=== PATIENT | male | born 1950 | race Caucasian/White ===

== ENCOUNTER 2016-10-05 17:23 | Emergency (ER) | payer OTHER ==
[2016-10-05] MEDS ORDERED: Adacel Vial IM ONE ×2 (17:30→18:10)
[2016-10-05] MEDS ORDERED: Sodium Chloride 0.9% 1000 ML 1,000 ML IV SCH (17:30)
[2016-10-05] MEDS ORDERED: SUBLIMAZE 100 MCG/2 ML IV ONE ×2 (17:30→19:26)
[2016-10-05] MEDS ORDERED: SUBLIMAZE 100 MCG/2 ML ONE ×2 (17:42→19:28)
[2016-10-05] MEDS ORDERED: Sodium Chloride 0.9% 1000 ML 1,000 ML ONE (17:42)
[2016-10-05 17:45] LABS: BASOPHIL % 0.2 % (0.0-0.4); Granulocytes % 68.3 % (36.0-66.0); Lymphocytes % 21.6 % (24.0-44.0); Mean Cell Volume 91.5 fl (78-100); Mean Corpuscular Hemoglobin 31.3 pg (26-32); Mean Platelet Volume 9.4 fl (6-9.5); Monocytes % 8.9 % (0.0-12.0); Platelet Count 191 K/mm3 (150-450); Red Cell Distribution Width 13.1 % (11.5-14.0); White Blood Count 10.6 K/mm3 (4.0-10.5)
[2016-10-05 17:46] VITALS: O2SAT 99
[2016-10-05 18:02] LABS: INR 1.07 (0.8-3.0)
[2016-10-05 18:05] LABS: ALBUMIN 4.4 g/dL (3.4-5.0); ANION GAP 15.7 MEQ/L (5-15); BILIRUBIN,TOTAL 0.6 mg/dL (0.2-1.0); Potassium 4.8 mEq/L (3.5-5.1); Total Protein 7.9 gm/dL (6.4-8.2)
[2016-10-05] MEDS ORDERED: Sodium Chloride 0.9% 1000 ML 1,000 ML IV STA (19:26)
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
[2016-10-05 19:58] VITALS: BP 140/92; PULSE 88
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
== END 2016-10-05 20:35 | disposition short-term general hospital (02) ==
LOC: ED 17:23
DX: S82.001A Unspecified fracture of right patella, initial encounter for closed fracture (principal); S32.019A Unspecified fracture of first lumbar vertebra, initial encounter for closed fracture; S32.029A Unspecified fracture of second lumbar vertebra, initial encounter for closed fracture; M54.5 Low back pain; V89.2XXA Person injured in unspecified motor-vehicle accident, traffic, initial encounter
CPT/HCPCS: 36000; 36415; 71010; 72125; 73552; 73560; 73590; 74177; 76376; 80053; 85025; 85610; 85730; 90471; 90715; 96360; 96361; 96374; 96376; 99285; J3010; L1830

== ENCOUNTER 2017-02-21 05:53 | Day surgery (SDC) | payer OTHER ==
[2017-02-21] MEDS ORDERED: DIPRIVAN 200 MG/20 ML IV ONE (05:54)
[2017-02-21] MEDS ORDERED: Ketamine HCl 50 MG/ML IV ONE (05:54)
[2017-02-21] MEDS ORDERED: Lactated Ringers 1,000 ML IV SCH (06:00)
[2017-02-21 09:11] VITALS: O2SAT 99
[2017-02-21 09:36] VITALS: BP 129/79; PULSE 69
--- NOTE | 2017-02-21 13:31 | OP ---
SURGERY DATE: 02/21/17 SURGERY TIME: 738 PREOPERATIVE DIAGNOSIS: 1. SCREENING COLONOSCOPY. POSTOPERATIVE DIAGNOSIS: 1. RECTAL POLYPS X 4. PROCEDURE: 1. Colonoscopy. SURGEON: Dr. Randall Atkins. ANESTHESIA: MAC by Junito Marcial CRNA. SPECIMENS: 1. Four hot forceps polypectomies of rectal polyps. ESTIMATED BLOOD LOSS: Minimal. DESCRIPTION OF PROCEDURE: After informed written consent was obtained, the patient was taken to the endoscopy suite. He underwent monitored anesthesia and a digital rectal exam showed normal sphincter tone and no internal lesions. The scope was inserted in the rectum. Sequentially, the entire colonic mucosa was traversed. The level of the cecum was reached and verified with direct visualization of the ileocecal valve. Upon withdrawal, careful mucosal inspection revealed no gross abnormalities until I reached the level of the rectum. There were 4 small sessile polyps in the rectal area which were removed with hot forceps in their entirety with good hemostasis. Retroflexion was performed prior to withdrawal and was within normal limits. The scope was removed and the patient was transferred to the recovery room in excellent condition.
== END 2017-02-21 09:25 | disposition home or self-care (01) ==
LOC: SDC 05:53
PROVIDERS: ATTEND Family Medicine
PROC: 0DBP8ZX Excision of Rectum, Via Natural or Artificial Opening Endoscopic, Diagnostic (ICD-10-PCS; principal; 2017-02-21)
DX: Z12.11 Encounter for screening for malignant neoplasm of colon (principal); K62.1 Rectal polyp
CPT/HCPCS: 00810; 36415; 88305; J2704

== ENCOUNTER 2017-03-10 14:36 | Emergency (ER) | payer OTHER ==
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
[2017-03-10 16:18] LABS: BASOPHIL % 0.4 % (0.0-0.4); Eosinophil % 1.1 % (0.00-5.0); Granulocytes % 68.1 % (36.0-66.0); Lymphocytes % 20.8 % (24.0-44.0); Mean Cell Volume 92.2 fl (78-100); Mean Corpuscular Hemoglobin 31.1 pg (26-32); Monocytes % 9.6 % (0.0-12.0); Platelet Count 227 K/mm3 (150-450); Red Blood Count 5.24 M/mm3 (4.1-5.6); Red Cell Distribution Width 13.2 % (11.5-14.0); White Blood Count 8.1 K/mm3 (4.0-10.5)
[2017-03-10 16:29] LABS: ALBUMIN 3.8 g/dL (3.4-5.0); ALKALINE PHOSPHATASE 79 U/L (46-116); ANION GAP 14.5 MEQ/L (5-15); BLOOD UREA NITROGEN 18 mg/dL (9-20); CHLORIDE 106 mEq/L (98-107); Glucose 115 MG/DL (70-110); Potassium 4.2 mEq/L (3.5-5.1); SGOT/AST 15 U/L (15-37); SGPT/ALT 24 U/L (12-78); SODIUM 141 mEq/L (136-145); Total Protein 7.3 gm/dL (6.4-8.2)
--- NOTE | 2017-03-10 16:50 | XRAY ---
Indication: Dizziness. Comparison: October 05, 2016. PA/lateral chest slightly underinflated with minimal right base discoid atelectasis. Remaining lungs clear. Heart is not enlarged. Bony thorax intact. Impression: Nonacute underinflated chest.
[2017-03-10 16:52] LABS: Bilirubin NEGATIVE (NEGATIVE); Blood NEGATIVE Ery/ul (0-5); Collection Type CCMS; Glucose NEGATIVE (NEGATIVE); Leukocyte Esterase NEGATIVE (NEGATIVE)
[2017-03-10 16:53] LABS: ADD URINE CULTURE? NO (NO); COMPLETE URINE MICROSCOPIC? NO
--- NOTE | 2017-03-10 16:53 | XRAY ---
Indication: Weakness and dizziness. Multiple contiguous axial images obtained through the head without contrast. Comparison: None Normal appearing brain parenchyma, ventricles, and bony calvarium. Visualized paranasal sinuses and mastoid air cells are clear. Impression: Normal CT head without contrast exam. CTDI 69.25
[2017-03-10 18:39] VITALS: BP 113/88; PULSE 80; O2SAT 98
== END 2017-03-10 18:38 | disposition home or self-care (01) ==
LOC: ED 14:36
DX: R42 Dizziness and giddiness (principal); R51 Headache; E78.00 Pure hypercholesterolemia, unspecified; I10 Essential (primary) hypertension
CPT/HCPCS: 36000; 36415; 70450; 71020; 80053; 80307; 81002; 84484; 85025; 93005; 99284

== ENCOUNTER 2021-02-18 18:01 | Emergency (ER) | payer MEDICARE, OTHER | END 2021-02-18 19:01 | disposition left against medical advice (07) | LOC: ED 18:01 | DX: Z53.9 Procedure and treatment not carried out, unspecified reason (principal) ==